=== PATIENT | female | born 1985 | race Caucasian/White ===

== ENCOUNTER 2017-08-21 06:43 | Emergency (ER) | payer BC, OTHER ==
[2017-08-21] MEDS ORDERED: Ketorolac INJ* 30 MG/ML 1 ML VIAL IV ONE (07:48)
[2017-08-21 08:00] LABS: ABS Basophils 0 10^3/ul (0-0.2); ABS Eosinophils 0 10^3/ul (0-0.6); ABS Lymphocytes 0.7 10^3/ul (1.0-4.8); ABS Monocytes 0.4 10^3/ul (0-0.8); ABS Neutrophils 8.4 10^3/ul (1.5-7.7); ABS Nucleated RBC 0 10^3/ul; Eosinophil % 0 % (0-6); Hematocrit 30 % (35-47); Hemoglobin 10.3 g/dl (12.0-16.0); Lymphocyte % 7.1 % (25-47); Mean Corpuscular HGB Conc 35 g/dl (31-36); Mean Corpuscular Hemoglobin 33 pg (27-31); Mean Corpuscular Volume 94 fL (80-97); Mean Platelet Volume 9 um3 (7.4-10.4); Nucleated Red Blood Cells % 0; Platelet Count 181 10^3/ul (150-450); Red Blood Count 3.15 10^6/ul (4.0-5.4); Red Cell Distribution Width 12 % (10.5-15); White Blood Count 9.6 10^3/ul (3.5-10.8)
[2017-08-21 08:16] LABS: EGFR Non-African American 95.4 (>60)
[2017-08-21] MEDS ORDERED: HYDROmorphone INJ* 1 MG/ML CARPUJECT SYRINGE IV ONE (09:43)
[2017-08-21] MEDS ORDERED: NS 0.9% 1000 ML* 1,000 ML IV ONE ×2 (09:43→11:54)
[2017-08-21] MEDS ORDERED: Ondansetron INJ* 2 MG/ML VIAL IV ONE (09:43)
[2017-08-21] MEDS ORDERED: Iohexol 300* (CONTRAST) 10 ML SDV IV ONE (12:15)
[2017-08-21 12:38] LABS: Urine Appearance Cloudy; Urine Blood Negative (Negative); Urine Color Yellow; Urine Ketones 1+ (Negative); Urine Protein Negative (Negative); Urine Specific Gravity 1.016 (1.010-1.030); Urine Urobilinogen Negative (Negative)
--- NOTE | 2017-08-21 12:42 | RAD ---
Indication: Right-sided abdominal pain. Contrast: Administered 77.2 ml of OMNIPAQUE 300 mg/ml CT of the abdomen and pelvis was performed after oral and IV contrast administration. Coronal and sagittal reconstructed images were obtained. Lung bases demonstrate no pleural fluid, nodules or masses. Heart is of normal size without evidence of pericardial effusion. The spleen is normal in size. No focal lesions are noted. Pancreas demonstrates no mass or pancreatic ductal dilatation. Common duct is not dilated. The gallbladder demonstrates no calcified gallstones. No pericholecystic fluid is identified. No adrenal masses are noted. The kidneys demonstrate symmetric nephrograms without focal lesions. No retroperitoneal lymphadenopathy is noted. No dilated loops of bowel are noted. CT of the pelvis demonstrates moderate degree of ascites. There is high density fluid in the cul-de-sac. Hemoperitoneum should BE considered. Enlarged uterus is noted. Left ovarian cystic structure measures up to 2.4 x 1.6 cm. Ill-defined structure is noted in the left adnexa measuring 7.5 x 3.2 cm which may represent hemorrhage. IMPRESSION: There is likely a moderate amount of hemoperitoneum noted. Left adnexal cyst measuring 24 mm is noted. Additional left retroperitoneal structure May represent hematoma measuring 7.4 x 3.2 cm. Left adnexal mass is not totally excluded.
[2017-08-21 13:16] LABS: Hematocrit 25 % (35-47); Hemoglobin 8.6 g/dl (12.0-16.0)
--- NOTE | 2017-08-21 14:36 | RAD ---
Indication: Left lower quadrant pain. Real-time sonography of the pelvis was performed. The uterus measures 10.7 x 5.2 x 5.5 cm. Endometrial echo measures 6 mm. The right ovary measures 3.3 x 2.2 x 3.9 cm. The left ovary measures 3.5 x 3.2 x 4.2 cm with a cyst in the left ovary measuring up to 2.0 x 2.4 cm. There is echogenic material surrounding the left ovary and in the cul-de-sac consistent with hemoperitoneum. IMPRESSION: Echogenic fluid in the cul-de-sac and surrounding the left adnexa consistent with hemoperitoneum. The ovaries are otherwise unremarkable. There may be a 2.4 cm left ovarian cyst.
--- NOTE | 2017-08-21 16:39 | CONSULT ---
Consult Consult: HPI: Pt states she had sudden onset of abdominal pain during intercourse @00: 30. The pain continued throughout the night and she was unable to sleep. Around 5:30am she pulled her own IUD out because she thought that might be causing the pain. She then came to the ED. One episode of vomiting prior to arrival here but otherwise no n/v. Has not eaten anything since being here. Pain was originally more left side but now is more in her upper right abdomen. She has been in the ED about 9hrs now and has not had pain medicine for about 5hrs when she had 1mg of dilaudid. Now the pain is starting to come back again. Has received 3L of IVF while being here. ROS: negative other than above mentioned sxms. 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 No h/o issues with ovarian cysts. Had Mirena IUD in place until this am. Soc Hx: denies alcohol, tobacco or illicit drug use Vitals: BPs have been mostly 80-90s/50s. Pt says she runs low normally. Pulse wnl. Exam Gen: NAD, slightly pale Abd: soft, moderately tender RUQ, mild tenderness RLQ, no rebound or guarding Able to stand without feeling dizzy or light headed Labs: H/H: 10.3/30 -> 8.5/25 over <5hrs Sono: Normal uterus and right ovary. Left ovary with small 2.4cm cyst. Echogenic material in the cul-de-sac and around the left ovary consistent with hemoperitoneum. Assessment: 31yo P4 with likely ruptured hemorrhagic cyst. Currently appears to be stable. Offered pt observation at the hospital but she prefers to go home. Reviewed reasons to call. Is established pt at our office and will call for visit to replace IUD and call with any other questions. She should push fluids , take iron supplementation, vitamin C and a stool softener as needed. Will take ibuprofen for pain as well as percocet when needed for a few days.
[2017-08-21] MEDS ORDERED: oxyCODONE/Acetamin 5/325 MG* TAB PO ONE (18:03)
[2017-08-21 19:45] VITALS: BP 103/63
--- NOTE | 2017-08-22 08:33 | ED ---
John Marina Thomas, scribed for Venkat Zhou MD on 08/21/17 at 0751 . Abdominal Pain/Female - HPI Summary HPI Summary: The patient is a 31 year old female complaining of constant cramping pain in the lower abdominal quadrants that started at 00:30 this morning when she was having sexual intercourse. The patient additionally complains of an intermittent stabbing pain. She vomited once prior to arrival but denies nausea. The patient notes that her pain is aggravated by movement. The patient s LNMP was 08/04/17. Per triage note, the patient removed her IUD at 05:30. - History of Current Complaint Chief Complaint: EDAbdPain Stated Complaint: ABD PAIN Time Seen by Provider: 08/21/17 07:22 Hx Obtained From: Patient Hx Last Menstrual Period: 08/04/17 Onset/Duration: Sudden Onset, Still Present Timing: Constant Pain Intensity: 7 Pain Scale Used: 0-10 Numeric Location: Diffuse Character: Sharp - intermittent stabbing pain, Cramping Aggravating Factor(s): Movement Alleviating Factor(s): Position - knees bent Associated Signs and Symptoms: Positive: Vomiting. Negative: Nausea Allergies/Adverse Reactions: Allergies Allergy/AdvReac Type Severity Reaction Status Date / Time No Known Allergies Allergy Verified 08/21/17 06:48 Home Medications: Home Medications NK [No Home Medications Reported] 08/21/17 [History Confirmed 08/21/17] PMH/Surg Hx/FS Hx/Imm Hx Sensory History: Denies: Hx Deafness Opthamlomology History: Denies: Hx Legally Blind - Surgical History Other Surgical History: None Infectious Disease History: No Infectious Disease History: Denies: Traveled Outside the [place] in Last 30 Days - Family History Known Family History: Positive: Hypertension - Social History Alcohol Use: Rare Substance Use Type: Reports: None Smoking Status (MU): Never Smoked Tobacco Review of Systems Negative: Epistaxis Positive: Abdominal Pain, Vomiting. Negative: Nausea All Other Systems Reviewed And Are Negative: Yes Physical Exam - Summary Physical Exam Summary: Appearance: The patient is well-nourished in no acute distress and in no acute pain. Skin: The skin is warm and dry and skin color reflects adequate perfusion. HEENT: The head is normocephalic and atraumatic. The pupils are equal and reactive. The conjunctivae are clear and without drainage. Nares are patent and without drainage. Mouth reveals moist mucous membranes and the throat is without erythema and exudate. The external ears are intact. The ear canals are patent and without drainage. The tympanic membranes are intact. Neck: the neck is supple with full range of motion and non-tender. There are no carotid bruits. There is no neck vein distension. Respiratory: Chest is non-tender. Lungs are clear to auscultation and breath sounds are symmetrical and equal. Cardiovascular: Heart is regular rate and rhythm.~There is no murmur or rub auscultated.~There is no peripheral edema and pulses are symmetrical and equal. Abdomen: The abdomen is soft and non-tender. There are normal bowel sounds heard in all four quadrants and there is no organomegaly palpated. Musculoskeletal: There is no back tenderness noted. Extremities are non-tender with full range of motion. There is good capillary refill. There is no peripheral edema or calf tenderness elicited. Neurological: Patient is alert and oriented to person, place and time. The patient has symmetrical motor strength in all four extremities. Cranial nerves are grossly intact. Deep tendon reflexes are symmetrical and equal in all four extremities. Psychiatric: The patient has an appropriate affect and does not exhibit any anxiety or depression. Triage Information Reviewed: Yes Vital Signs On Initial Exam: Initial Vitals Temp Pulse Resp BP Pulse Ox 97.2 F 103 16 114/60 100 08/21/17 06:45 08/21/17 06:45 08/21/17 06:45 08/21/17 06:45 08/21/17 06:45 Vital Signs Reviewed: Yes Diagnostics - Vital Signs Vital Signs Temp Pulse Resp BP Pulse Ox 08/21/17 07:00 74 101/60 100 08/21/17 06:55 84 100 08/21/17 06:53 116/71 08/21/17 06:45 97.2 F 103 16 114/60 100 - Laboratory Lab Results: Lab Results 08/21/17 08/21/17 08/21/17 Range/Units 07:50 07:50 07:50 WBC 9.6 (3.5-10.8) 10^3/ul RBC 3.15 L (4.0-5.4) 10^6/ul Hgb 10.3 L (12.0-16.0) g/dl Hct 30 L (35-47) % MCV 94 (80-97) fL MCH 33 H (27-31) pg MCHC 35 (31-36) g/dl RDW 12 (10.5-15) % Plt Count 181 (150-450) 10^3/ul MPV 9 (7.4-10.4) um3 Neut % (Auto) 88.1 H (38-83) % Lymph % (Auto) 7.1 L (25-47) % Hughes % (Auto) 4.5 (0-7) % Eos % (Auto) 0 (0-6) % Baso % (Auto) 0.3 (0-2) % Absolute Neuts (auto) 8.4 H (1.5-7.7) 10^3/ul Absolute Lymphs (auto) 0.7 L (1.0-4.8) 10^3/ul Absolute Monos (auto) 0.4 (0-0.8) 10^3/ul Absolute Eos (auto) 0 (0-0.6) 10^3/ul Absolute Basos (auto) 0 (0-0.2) 10^3/ul Absolute Nucleated RBC 0 10^3/ul Nucleated RBC % 0 Sodium 137 (133-145) mmol/L Potassium 3.5 (3.5-5.0) mmol/L Chloride 107 (101-111) mmol/L Carbon Dioxide 25 (22-32) mmol/L Anion Gap 5 (2-11) mmol/L BUN 11 (6-24) mg/dL Creatinine 0.71 (0.51-0.95) mg/dL Est GFR ( Amer) 122.7 (>60) Est GFR (Non-Af Amer) 95.4 (>60) BUN/Creatinine Ratio 15.5 (8-20) Glucose 122 H (70-100) mg/dL Lactic Acid 1.2 (0.5-2.0) mmol/L Calcium 8.9 (8.6-10.3) mg/dL Total Bilirubin 0.60 (0.2-1.0) mg/dL AST 11 L (13-39) U/L ALT 6 L (7-52) U/L Alkaline Phosphatase 38 (34-104) U/L C-Reactive Protein < 1.00 (< 5.00) mg/L Total Protein 6.3 L (6.4-8.9) g/dL Albumin 4.0 (3.2-5.2) g/dL Globulin 2.3 (2-4) g/dL Albumin/Globulin Ratio 1.7 (1-3) Lipase < 10 L (11.0-82.0) U/L Beta HCG, Quant < 0.60 mIU/mL Urine Color Urine Appearance Urine pH (5-9) Ur Specific [place] (1.010-1.030) Urine Protein (Negative) Urine Ketones (Negative) Urine Blood (Negative) Urine Nitrate (Negative) Urine Bilirubin (Negative) Urine Urobilinogen (Negative) Ur Leukocyte Esterase (Negative) Urine Glucose (Negative) 08/21/17 08/21/17 Range/Units 12:08 13:05 WBC (3.5-10.8) 10^3/ul RBC (4.0-5.4) 10^6/ul Hgb 8.6 L (12.0-16.0) g/dl Hct 25 L (35-47) % MCV (80-97) fL MCH (27-31) pg MCHC (31-36) g/dl RDW (10.5-15) % Plt Count (150-450) 10^3/ul MPV (7.4-10.4) um3 Neut % (Auto) (38-83) % Lymph % (Auto) (25-47) % Hughes % (Auto) (0-7) % Eos % (Auto) (0-6) % Baso % (Auto) (0-2) % Absolute Neuts (auto) (1.5-7.7) 10^3/ul Absolute Lymphs (auto) (1.0-4.8) 10^3/ul Absolute Monos (auto) (0-0.8) 10^3/ul Absolute Eos (auto) (0-0.6) 10^3/ul Absolute Basos (auto) (0-0.2) 10^3/ul Absolute Nucleated RBC 10^3/ul Nucleated RBC % Sodium (133-145) mmol/L Potassium (3.5-5.0) mmol/L Chloride (101-111) mmol/L Carbon Dioxide (22-32) mmol/L Anion Gap (2-11) mmol/L BUN (6-24) mg/dL Creatinine (0.51-0.95) mg/dL Est GFR ( Amer) (>60) Est GFR (Non-Af Amer) (>60) BUN/Creatinine Ratio (8-20) Glucose (70-100) mg/dL Lactic Acid (0.5-2.0) mmol/L Calcium (8.6-10.3) mg/dL Total Bilirubin (0.2-1.0) mg/dL AST (13-39) U/L ALT (7-52) U/L Alkaline Phosphatase (34-104) U/L C-Reactive Protein (< 5.00) mg/L Total Protein (6.4-8.9) g/dL Albumin (3.2-5.2) g/dL Globulin (2-4) g/dL Albumin/Globulin Ratio (1-3) Lipase (11.0-82.0) U/L Beta HCG, Quant mIU/mL Urine Color Yellow Urine Appearance Cloudy Urine pH 6.0 (5-9) Ur Specific [place] 1.016 (1.010-1.030) Urine Protein Negative (Negative) Urine Ketones 1+ H (Negative) Urine Blood Negative (Negative) Urine Nitrate Negative (Negative) Urine Bilirubin Negative (Negative) Urine Urobilinogen Negative (Negative) Ur Leukocyte Esterase Negative (Negative) Urine Glucose Negative (Negative) Result Diagrams: 08/21/17 13:05 08/21/17 07:50 Lab Statement: Any lab studies that have been ordered have been reviewed, and results considered in the medical decision making process. - CT CT Abd/Pelvis CT Interpretation: Positive (See Comments) - There is likely a moderate amount of hemoperitoneum noted. Left adnexal cyst measuring 24 mm is noted. Additional left retroperitoneal structure May represent hematoma measuring 7.4 x 3.2 cm. Left adnexal mass is not totally excluded. Dr. Zhou has reviewed this report. CT Interpretation Completed By: Radiologist - Additional Comments Diagnostic Additional Comments: Ultrasound Pelvis Interpreted by radiologist IMPRESSION: Echogenic fluid in the cul-de-sac and surrounding the left adnexa consistent with hemoperitoneum. The ovaries are otherwise unremarkable. There may be a 2.4 cm left ovarian cyst. Dr. Zhou has reviewed this report. Abdominal Pain Fem Course/Dx - Course Course Of Treatment: Ms. Oseguera had a severe abdominal pain that started this AM during intercourse. It originally hurt in the right flank but now bothers her in the LLQ when she pushes there. She was only mildly tender in LLQ and not really tender anywhere else when I examined her. Labs were obtained and she was given IV NS and toradol. Her H&H was a bit low at 10/20 and I didn't have a baseline. Her BP's ran in the 90's and 80's and she related that that was normal for her. She did not develop tachycardia. A CT was obtained as she continued to have significant pain and she was noted to have hemoperitoneum with a question of a cyst in the left adnexa. Dr. Holcomb was contacted and requested an U/S which showed hemoperitoneum and a cyst. Her H&H dropped to 8.6 /16 and I again spoke with Dr. Holcomb who came and evaluated the patient. She felt that she was safe for D/C and F/U. - Diagnoses Provider Diagnoses: Ruptured ovarian cyst - Provider Notifications Discussed Care Of Patient With: Beba Holcomb Time Discussed With Above Provider: 15:43 Instructed by Provider To: Other - Dr. Holcomb, [employer], came to evaluate the patient. She reports the patient can be discharged home with outpatient follow up. Discharge - Discharge Plan Condition: Stable Disposition: HOME Patient Education Materials: Ruptured Ovarian Cyst (ED) Referrals: Beba Holcomb MD [Medical Doctor] - 1 Day Additional Instructions: Call Dr. Holcomb's office tomorrow morning for an appointment. Return to the emergency department for any new or worsening symptoms. The documentation as recorded by the John rose Thomas accurately reflects the service I personally performed and the decisions made by me, Venkat Zhou MD.
== END 2017-08-21 19:43 | disposition home or self-care (01) ==
LOC: ED 06:43
DX: N83.202 Unspecified ovarian cyst, left side (principal)
CPT/HCPCS: 36415; 74177; 76856; 80053; 81003; 83605; 83690; 84702; 85014; 85018; 85025; 86140; 96360; 96374; 96375; 99285; J1170; J1885; J2405; Q9967